=== PATIENT | female | born 1975 | race Caucasian/White ===

== ENCOUNTER 2017-09-30 18:09 | Emergency (ER) | payer OTHER ==
[2017-09-30] MEDS ORDERED: diphenhydrAMINE INJ 50 MG/ML VIAL IM STA (19:24)
[2017-09-30] MEDS ORDERED: KETOROLAC 60 MG/2 ML VIAL IM STA (19:24)
[2017-09-30] MEDS ORDERED: PROMETHAZINE 25 MG/1 ML VIAL IM STA (19:24)
--- NOTE | 2017-09-30 19:26 | ED Physician Documentation ---
PD HPI HEADACHE - Stated complaint Stated Complaint: MIGRAINE - Chief complaint Chief Complaint: Neuro - History obtained from History obtained from: Patient, Friend - History of Present Illness Timing - onset: How many days ago (3) Timing - onset during: Rest Timing - duration: Days (3) Timing - details: Gradual onset Pain level max: 8 Pain level now: 8 Worst headache ever?: No: Worst headache ever? Location: Back, Right Quality: Throbbing, Aching. No: Thunderclap Associated symptoms: Nausea. No: Fever, Stiff neck, Vomiting, Weakness, Numbness, Syncope, Seizure, Eye pain, Vision changes Improved by: Rest, Other (imitrex didn't help) Worsened by: Light, Noise, Moving Similar symptoms before: Diagnosis (migraines) Review of Systems Constitutional: denies: Fever, Chills Eyes: denies: Decreased vision Nose: denies: Rhinorrhea / runny nose, Congestion, Sinus pressure / pain Throat: denies: Sore throat Cardiac: denies: Chest pain / pressure Respiratory: denies: Cough GI: denies: Abdominal Pain, Nausea, Vomiting, Diarrhea Skin: denies: Rash Musculoskeletal: denies: Neck pain, Back pain Neurologic: denies: Focal weakness, Numbness, Headache PD PAST MEDICAL HISTORY - Past Medical History Past Medical History: Yes Cardiovascular: Hypertension, Other Neuro: Headache/migraine - Past Surgical History 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, 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 - Present Medications Home Medications: Ambulatory Orders Medication Instructions Recorded Confirmed Sumatriptan Succinate [Imitrex] 100 mg PO BID PRN 09/30/17 09/30/17 - Allergies Allergies/Adverse Reactions: Allergies Allergy/AdvReac Type Severity Reaction Status Date / Time oxycodone AdvReac Nausea Verified 09/30/17 18:27 - Social History Does the pt smoke?: No Smoking Status: Never smoker Does the pt drink ETOH?: No Does the pt have substance abuse?: No - Immunizations Immunizations are current?: Yes PD ED PE NORMAL - Vitals Vital signs reviewed: Yes - General General: Alert and oriented X 3, No acute distress - HEENT HEENT: Atraumatic, PERRL, EOMI, Ears normal, Moist mucous membranes, Pharynx benign - Neck Neck: Supple, no meningeal sign - Cardiac Cardiac: RRR - Respiratory Respiratory: No respiratory distress, Clear bilaterally - Abdomen Abdomen: Soft, Non tender, Non distended - Derm Derm: Warm and dry - Neuro Neuro: Alert and oriented X 3, stage manager 2-12 intact, No motor deficit, No sensory deficit, Normal speech, Other (normal cerebellar tests) Eye Opening: Spontaneous Motor: Obeys Commands Verbal: Oriented GCS Score: 15 - Psych Psych: Normal mood, Normal affect Results - Vitals Vitals: Vital Signs - 24 hr 09/30/17 09/30/17 18:24 20:30 Temperature 36.7 C Heart Rate 73 67 Respiratory 18 18 Rate Blood Pressure 115/78 114/79 O2 Saturation 99 100 Oxygen O2 Source Room air PD MEDICAL DECISION MAKING - ED course Complexity details: re-evaluated patient, considered differential, d/w patient ED course: Patient is a 41-year-old female who presents to the emergency department with her typical migraine headache. Given Toradol, Phenergan, Benadryl IM. Headache resolved. No evidence of subarachnoid hemorrhage, tumor, mass. Will continue supportive care and follow-up with her doctor. Patient counseled regarding signs and symptoms for which I believe and urgent re-evaluation would be necessary. Patient with good understanding of and agreement to plan and is comfortable going home at this time This document was made in part using voice recognition software. While efforts are made to proofread this document, sound alike and grammatical errors may occur. Friend is driving her home Departure - Departure Disposition: 01 Home, Self Care Clinical Impression: Migraine Qualifiers: Migraine type: unspecified Status migrainosus presence: without status migrainosus Intractability: not intractable Qualified Code(s): G43.909 - Migraine, unspecified, not intractable, without status migrainosus Condition: Good Instructions: ED Headache Migraine Follow-Up: Guanakito Walsh ARNP [Primary Care Provider] - Within 1 week Comments: Return if you worse. Go home and sleep tonight. Discharge Date/Time: 09/30/17 20:31
[2017-09-30 20:30] VITALS: BP 114/79
== END 2017-09-30 20:31 | disposition home or self-care (01) ==
LOC: ED 18:09
DX: G43.909 Migraine, unspecified, not intractable, without status migrainosus (principal); I10 Essential (primary) hypertension
CPT/HCPCS: 96372; 99283; 99284

== ENCOUNTER 2017-12-24 17:15 | Emergency (ER) | payer OTHER ==
[2017-12-24] MEDS ORDERED: diphenhydrAMINE INJ 50 MG/ML VIAL IVP STA (18:35)
[2017-12-24] MEDS ORDERED: KETOROLAC 60 MG/2 ML VIAL IVP STA (18:35)
[2017-12-24] MEDS ORDERED: PROCHLORPERAZINE 10 MG/2 ML VIAL IVP STA (18:35)
[2017-12-24] MEDS ORDERED: SODIUM CHLORIDE 0.9% 1,000 ML IV ONE (18:36)
--- NOTE | 2017-12-24 18:39 | ED Physician Documentation ---
History of Present Illness - Stated complaint Stated Complaint: MIGRAINE - Chief complaint Chief Complaint: Neuro - Additonal information Additional information: hx from pt 42 female hx migraines often related to her menses this migraine started this AM , was left sided, she took imitrex s relief and now it is bilateral, associated photophobia and nausea feels like her migraines no trauma no CO exposure no fever Review of Systems Constitutional: denies: Fever, Chills Eyes: reports: Photophobia GI: reports: Nausea. denies: Abdominal Pain : denies: Now EGA (denies) Neurologic: reports: Headache. 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 - Present Medications Home Medications: Ambulatory Orders Medication Instructions Recorded Confirmed Sumatriptan Succinate [Imitrex] 100 mg PO BID PRN 09/30/17 12/24/17 - Allergies Allergies/Adverse Reactions: Allergies Allergy/AdvReac Type Severity Reaction Status Date / Time oxycodone AdvReac Nausea Verified 12/24/17 17:21 - Social History Does the pt smoke?: No Smoking Status: Never smoker Does the pt drink ETOH?: No Does the pt have substance abuse?: No - Immunizations Immunizations are current?: Yes PD ED PE NORMAL - Vitals Vital signs reviewed: Yes - HEENT HEENT: PERRL, EOMI, Other (globes soft, not injected or hazy, no TA TTP) - Neck Neck: Supple, no meningeal sign - Cardiac Cardiac: RRR - Respiratory Respiratory: No respiratory distress - Abdomen Abdomen: Soft, Non tender - Derm Derm: Normal color - Neuro Neuro: Alert and oriented X 3, 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 equipment design engineer 2-12 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, No motor deficit, Normal speech Results - Vitals Vitals: Vital Signs - 24 hr 12/24/17 12/24/17 17:19 19:36 Temperature 36.8 C 36.6 C Heart Rate 86 81 Respiratory 18 20 Rate Blood Pressure 130/92 H 147/98 H O2 Saturation 99 100 Oxygen O2 Source Room air PD MEDICAL DECISION MAKING - ED course ED course: pt felt better and was dced Departure - Departure Disposition: 01 Home, Self Care Clinical Impression: Migraine Qualifiers: Migraine type: unspecified Status migrainosus presence: without status migrainosus Intractability: not intractable Qualified Code(s): G43.909 - Migraine, unspecified, not intractable, without status migrainosus Condition: Good Instructions: ED Headache Migraine Follow-Up: Guanakito Walsh ARNP [Primary Care Provider] - Comments: Take it easy for the rest of the day Your should feel better by tomorrow Follow up with your PMD as needed Forms: Activity restrictions Discharge Date/Time: 12/24/17 19:44
[2017-12-24 19:37] VITALS: BP 147/98
== END 2017-12-24 19:44 | disposition home or self-care (01) ==
LOC: ED 17:15
DX: G43.909 Migraine, unspecified, not intractable, without status migrainosus (principal); I10 Essential (primary) hypertension
CPT/HCPCS: 96374; 96375; 99283; 99284; J1200